=== PATIENT | male | born 1960 | race Caucasian/White ===

== ENCOUNTER 2018-11-02 13:31 | Inpatient (IN) | payer OTHER ==
[~2018-11-02] VITALS: Ht 180.3 cm; Wt 111.6 kg
[2018-11-02] VITALS (14 sets, daily range): BP systolic 112–199; BP diastolic 59–112
[~2018-11-02 13:31] MED LIST: ASPIRIN81 M2 PO; ASTAXANTHIN4 MG PO; B COMPLEX1 EACH PO; CHILDREN'S ASPI81 MG PO; CHOLEST OFF450 MG PO; CLONIDINE0.1 PO; COMBIVENT RESPIM4 GM INH; COQ-10100 MG PO; COZAAR 50 MG TA50 M2 PO; EFFEXOR XR37.5 MG PO; HYDROCHLOROTHIA25 M1 PO; METOPROLOL TAR100 MG PO; SIMVASTATIN40 MG PO; SYMBICORT80 MCG/4.1 INH; VITAMIN D1000 UNI2 PO; VITAMIN D32000 UNIT PO
[2018-11-02 13:51] LABS: ABSOLUTE BASOPHILS 0.1 thou/uL (0.0-0.2); ABSOLUTE EOSINOPHILS 0.1 thou/uL (0.0-0.7); ABSOLUTE LYMPHOCYTES 2.8 thou/uL (0.8-5.3); ABSOLUTE MONOCYTES 0.7 thou/uL (0.0-1.2); EOSINOPHILS 1.6 %; HEMATOCRIT 48.9 % (42.0-52.0); HEMOGLOBIN 16.8 gm/dL (14.0-18.0); LYMPHOCYTES 32.3 %; MCH 31.1 pg (26.0-34.0); MCHC 34.3 g/dL (28.0-37.0); MCV 90.8 fL (80.0-100.0); MONOCYTES 8.5 %; MPV 7.2 fl. (7.2-11.1); NUCLEATED RBCS 0 /100WBC; PLATELET COUNT* 288 thou/uL (150-400); POLYS 56.6 %; RBC 5.39 mil/uL (4.50-6.00); RDW-CV 13.1 % (10.5-14.5); WBC 8.8 thou/uL (4.0-11.0)
[2018-11-02 14:04] LABS: APTT 26.3 Seconds (25.0-31.3)
[2018-11-02 14:08] LABS: CALCIUM 9.5 mg/dL (8.5-10.1); CREATININE 1.3 mg/dL (0.6-1.3); POTASSIUM 3.8 mmol/L (3.5-5.1)
[2018-11-02 14:18] LABS: ALBUMIN 3.8 g/dL (3.4-5.0); CK-MB MASS 5.3 ng/mL (<0.5-3.6); MAGNESIUM 2.1 mg/dL (1.8-2.4); TOTAL BILIRUBIN 0.6 mg/dL (<0.1-1.0); TOTAL PROTEIN 7.5 g/dL (6.4-8.2); TROPONIN-I LEVEL 0.07 ng/mL (<0.06)
--- NOTE | 2018-11-02 15:36 | CARD ---
[address] [address] CARDIAC CATH REPORT Name: DARRYL MARS Room: [facility] Nolberto#: [id number] Admission: 11/02/18 Attend Phys: Discharge: 11/02/18 Date of : 58 Report #: [id number] THIS REPORT FOR: //name// APPROVED REPORT Study performed: 11/02/2018 13:44:45 Patient Details Patient Status: ED Room #: The patient is a 58 year-old male Event Personnel Jess Shepherd, Yoandy Roberson, Blessing Edwards RN, Dimitris Garg Business Development Agent Procedures Performed Left Heart Cath Coronaries, Bypass Grafts [id number] LHCCORCABG SHILA Revasc Graft Single DIAG C9604 SVGREVSING Indication Non-STEMI (>0 to less than or equal to 6 hours), Dyspnea, Unstable angina , Chest pain Risk Factors Obesity, Hypercholesterolemia, Coronary Artery DiseaseHypertension, Tobacco History () Previous Procedures/Diagnoses Previous CABG Procedure Narrative The patient was brought urgently to the Cardiac Catheterization Laboratory and was prepped and draped in a sterile manner. The right femoral was infiltrated with 2% Lidocaine subcutaneous anesthesia. A 6fr Ultimum Sheath sheath was inserted into the right femoral artery. Coronary angiography was performed using coronary diagnostic catheters. The right coronary system was accessed and visualized with a Diagnostic catheter. The left coronary system was accessed [place] [address] CARDIAC CATH REPORT Name: DARRYL MARS Room: [facility]#: [id number] Admission: 11/02/18 Attend Phys: Discharge: 11/02/18 Date of : 58 Report #: [id number] catheter. The left ventricle was accessed and visualized with a Diagnostic catheter. Left ventricular/Aortic Valve gradient assessed via catheter pullback. The patient tolerated the procedure well and there were no complications associated with the procedure. Sheath was sutured into place. Intraoperative Conscious Sedation No sedation given. Dose: 2381 mGy Contrast Type and Amount: Visipaque 210 ml Coronary Angiography The patient's coronary anatomy is right dominant. [place] Artery Percent Stenosis Left Main: 60 % Prox LAD: % Mid/Distal LAD: % Circumflex: 100 % RCA: 100 % Ramus: % Diagnostic Cath LAD There is a patent ARREAGA graft with an end-to-side anastomosis to the mid LAD. After the anastomosis, there is both retrograde and antegrade flow in the igiugig LAD. Circumflex There is a sequential SVG with a side to side anastomosis to the first diagonal artery and terminates with a end-to-side anastomosis to OM1. Within the distal segment of the sequential SVG, just before the anastomosis to OM1, there is a severe, discrete stenosis of 99% with SARIKA 2 blood flow. Right Coronary There is a patent SVG with an end to side anastomosis to the PDA. After the anastomosis, there is both antegrade and retrograde flow (filling the distal RCA and RPL branch). Left Ventriculography The left ventricle is normal in size with normal contractility. The left ventricular ejection fraction is estimated to be >55%. Hemodynamics [address] [address] CARDIAC CATH REPORT Name: DARRYL MARS Room: [facility] Nolberto#: [id number] Admission: 11/02/18 Attend Phys: Discharge: 11/02/18 Date of : 58 Report #: [id number] The aortic pressure is 214/96 mmHg with a mean of 143 mmHg. The left ventricular pressure is 190/13 mmHg with a mean of mmHg. The left ventricular end diastolic pressure is 29 mmHg. Pullback from the left ventricle to the aorta revealed no gradient across the aortic valve. PCI Technique Lesion Anticoagulation was achieved with Angiomax. Patient was preloaded with Brillinta. Percutaneous coronary intervention was performed on the SVG to OM1. The lesion stenosis prior to intervention was 99% with SARIKA 2 flow. A 6F JR 4.0 Guide Catheter was used to engage the ostium. A IG: BMW 300cm Interventional Guidewire was used to cross the lesion. BALLOON DILATION A Balloon catheter Trek RX 2.5 X 15 was inserted and inflated up to 14.00atm for 17seconds. STENT DEPLOYMENT A drug-eluting stent Jeet RX Stent 3.0X18mm was inserted and inflated up to 18.00atm for 18seconds. Additional Inflation: 18.00atm for 15seconds. POST STENT DEPLOYMENT BALLOON DILATION A Balloon catheter NC Trek RX 3.25 X 12 was inserted and inflated up to 18.00atm for 14seconds. Final angiography reveals 0 % stenosis with SARIKA 3 flow. Conclusion 1. Successful insertion of a drug-eluting stent into the distal segment of the sequential SVG to the first diagonal artery and first OM vessel. 2. Patent ARREAGA to the LAD. 3. [place] [address] CARDIAC CATH REPORT Name: DARRYL MARS Room: [facility] Arvizu#: [id number] Admission: 11/02/18 Attend Phys: Discharge: 11/02/18 Date of : 58 Report #: [id number] 4. Normal LV systolic function. 5. Recommend aggressive risk factor management and dual antiplatelet therapy. <ELECTRONICALLY SIGNED> By: Dimitris Garg MD 11/02/18 1535 1535 1535Dimitris Garg MD /INF
--- NOTE | 2018-11-02 16:00 | NUR ---
VSS, ASSUMED CARE OF PT FROM INSTALLER HELPER, ASSESSMENT PERFORMED AND CHARTED, FALL PRECAUTIONS IN PLACE AND CALL LIGHT IN REACH, PT IS A&O4, ON RA AND IS TRACING SR ON THE MONITOR, DENIES ANY PAIN AND IS IN POST CATH BED PRECAUTIONS, HAS RIGHT GROIN SHEATH, PT HAS FAMILY AT BEDSIDE WILL FOLLOW WITH PLAN OF CARE.
--- NOTE | 2018-11-02 17:00 | NUR ---
SHEATH HAS BEEN PULLED AND HEAD PRESSURE, NO BLEEDING OR HEMOTOMA. WILL FOLLOW WITH PLAN OF CARE.
[2018-11-03] VITALS (9 sets, daily range): BP systolic 114–148; BP diastolic 55–75
[2018-11-03 04:26] LABS: HEMATOCRIT 41.8 % (42.0-52.0); MCH 31.2 pg (26.0-34.0); MCHC 34.6 g/dL (28.0-37.0); MCV 90.1 fL (80.0-100.0); MPV 7.2 fl. (7.2-11.1); RBC 4.64 mil/uL (4.50-6.00); RDW-CV 13.1 % (10.5-14.5); WBC 9.1 thou/uL (4.0-11.0)
[2018-11-03 04:57] LABS: HEMOGLOBIN 14.5 gm/dL (14.0-18.0)
[2018-11-03 05:30] LABS: ALKALINE PHOSPHATASE 97 U/L (46-116); ANION GAP 6 mmol/L (7-16); BUN 16 mg/dL (7-18); CALCIUM 8.6 mg/dL (8.5-10.1); CHLORIDE 102 mmol/L (98-107); CO2 30 mmol/L (21-32); GLUCOSE 142 mg/dL (70-99); POTASSIUM 3.7 mmol/L (3.5-5.1); SGOT 116 U/L (15-37); SGPT 35 U/L (30-65); SODIUM 138 mmol/L (136-145); TOTAL BILIRUBIN 0.7 mg/dL (<0.1-1.0); TOTAL PROTEIN 6.1 g/dL (6.4-8.2)
[2018-11-03 05:32] LABS: CHOLESTEROL 162 mg/dL (<200); SERUM ASSESSMENT CLEAR; TRIGLYCERIDE 236 mg/dL (<150); VLDL 47 mg/dL (<40)
[2018-11-03 05:33] LABS: HDL CHOLESTEROL 29 mg/dL (>40); LDL CHOLESTEROL 86 mg/dL (<100); TC:HDL 5.6 Ratio (Not establshd)
--- NOTE | 2018-11-03 05:44 | NUR ---
patient progressing towards goals. no acute hemodyamic changes over night. pt right groin site intact, no hematoma present, denies pain. pulses 2+ bilaterally. pt able to sleep most of the night. no voiced concerns at this time. bed to lowest position. call light in place.
--- NOTE | 2018-11-03 12:21 | EKG ---
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[facility] : 1960 Requested By: Raymond Fox Order Number: [id number] Reading MD: Ja Hartley Measurements Intervals [place] Rate: 63 P: 63 RI: 209 QRS: 51 QRSD: 92 T: 118 QT: 406 QTc: 416 Interpretive Statements Sinus rhythm Borderline prolonged RI interval Posterior infarct, old Nonspecific repol abnormality, lateral leads Baseline wander in lead(s) V2 Compared to ECG 10/28/2014 11:53:09 no change Electronically Signed On 11-03-2018 12:21:17 SKI GUIDE by Ja Hartley [email or web address] <ELECTRONICALLY SIGNED> By: Ja Hartley MD, [facility] 11/03/18 1221 0807 0807 Ja Hartley MD, [facility] /EPI
--- NOTE | 2018-11-03 12:21 | NUR ---
PT CALLED OUT AND STATED HE WANTED TO GO HOME INSTEAD OF BEING TRANSFERED TO TELEMETRY. DR OZUNA NOTIFIED AND PAGED DR PEREZ THROUGH THE CALL SERVICE LINE. PT SR/SB ON THE MONIOR, VSS, TOLERATING DIET, RA, AND BEING UP AD SHAD AT THIS TIME, NO PAIN REPORTED AT THIS TIME. WILL CONTINUE TO MONITOR AND ASSESS UNTIL PHYSICIAN CALLS BACK.
--- NOTE | 2018-11-03 13:57 | NUR ---
RECEIVED REPORT FROM VERENA IN ICU AND ASSUMED CARE OF PT @ 7088.PT IS A/OX4,VSS,TRACING SR ON THE MONITOR.THIS NURSE ASSESSED PT AND PREVIOUS NURSE CHARTING AND AGREES.RIGHT AC IV PATENT AND SALINE LOCKED. LEFT AC PATENT AND SALINE LOCKED.NO C/O PAIN.PT LEFT RESTING IN BED WITH CALL LIGHT WITHIN REACH.WILL CONTINUE TO MONITOR.
--- NOTE | 2018-11-03 18:06 | NUR ---
VSS.CARDIAC MONITORING IN PLACE WITH NO CHANGES.PT PROGRESSING TOWARDS GOALS.NO C/O PAIN.IV PATENT AND SALINE LOCKED.RIGHT GROIN SITE CLEAN,DRY, AND INTACT.PT INFORMED OF PLAN OF CARE AND COMMUNICATES UNDERSTANDING.HOURLY ROUNDING COMPLETED FOR PT SAFETY.CALL LIGHT WITHIN REACH.WILL CONTINUE TO MONITOR FOR DURATION OF SHIFT.
[2018-11-03 23:09] LABS: GLYCOHEMOGLOBIN (HGB A1C) 6.8 % (4.8-5.6)
[2018-11-04] VITALS (7 sets, daily range): BP systolic 159–176; BP diastolic 63–89
--- NOTE | 2018-11-04 03:03 | NUR ---
PATIENT RESTED IN BED, NO ACUTE CHANGES. PATIENT DID NOT SHOW SIGNS OF DISTRESS. PATIENT DID NOT COMPLAIN OF PAIN. CALL LIGHT WITHIN REACH, HOURLY ROUNDING OBSERVED.
[2018-11-04 06:09] LABS: CALCIUM 8.5 mg/dL (8.5-10.1); POTASSIUM 3.8 mmol/L (3.5-5.1)
--- NOTE | 2018-11-04 08:00 | NUR ---
ASSUMED PT CARE AT 0700, PT UP IN CHAIR, AWAITING BREAKFAST, MANDOLIN REPAIR PERSON TRACING SINUS RHYTHM, DENIES ANY PAIN, SOA. CATH SITE ON RIGHT GROIN SOFT AND INTACT. LS CTA, PT ON RA. PT ANXIOUST TO GO HOME THIS AFTERNOON. WILL CONT TO MONITOR.
--- NOTE | 2018-11-04 10:37 | CON ---
[address] [address] CONSULTATION Name: DARRYL MARS Room: [address] IN .R.#: [id number] Admission: 11/02/18 Attend Phys: Raymond Fox MD Discharge: Date of : 58 Report #: [id number] THIS REPORT FOR: //name// CC: Didier Fox DATE OF SERVICE: 11/02/2018 Cardiology Consultation INDICATION: Chest pains. HISTORY OF PRESENT ILLNESS: This is a 58-year-old gentleman, presenting with acute onset of left-sided chest pain. He has a prior history of CABG, tobacco use, hypertension and hypercholesterolemia. He developed left-sided chest discomfort, radiating down the left arm at home. He waited about an hour before he called 911. The ECG revealed significant ST depression in the precordial leads. The initial troponin level was abnormal. There is no history of fever, chills or nausea. He was treated with aspirin, heparin in the ER. He will be taken emergently to the cardiac lab support service tech. PAST MEDICAL HISTORY: CABG more than 10 years ago. Hypertension, hypercholesterolemia, borderline diabetes. ALLERGIES: LISINOPRIL. MEDICATIONS: Losartan 50 mg, hydrochlorothiazide, metoprolol 100 mg twice a day, simvastatin 40 mg and clonidine p.r.n. SOCIAL HISTORY: Smokes 3/4 of a pack per day. FAMILY HISTORY: Negative for premature CAD. REVIEW OF SYSTEMS: A full 10-point review of systems performed. Only the pertinent positives and negatives are described in the HPI. PHYSICAL EXAMINATION: VITAL SIGNS: Blood pressure is 170/80, heart rate is 85 beats per minute. GENERAL APPEARANCE: Overweight male in mild distress. HEENT: Normocephalic/atraumatic, oral mucosa moist. NECK: Supple. LUNGS: Clear to auscultation. CARDIAC: Regular rate and rhythm. S1, S2 positive. ABDOMEN: Soft, nontender. EXTREMITIES: No cyanosis, [place] [address] CONSULTATION Name: JERADDARRYL Room: [address] IN ..#: [id number] Admission: 11/02/18 Attend Phys: Raymond Fox MD Discharge: Date of : 58 Report #: [id number] NEUROLOGIC: Alert and oriented times 3. DIAGNOSTIC DATA: ECG reveals sinus rhythm with significant ST segment depression in the inferior and precordial leads. ASSESSMENT AND PLAN: 1. Non-ST elevation myocardial infarction/acute coronary syndrome, the patient with persistent symptoms even after treatment in the emergency room. He will be taken to the cardiac catheterization lab emergently. 2. Hypertension, we will change the beta liza to carvedilol. He will resume losartan and may require clonidine. 3. Hypercholesterolemia, we will start Lipitor. 4. Tobacco use, complete smoking cessation is recommended. <ELECTRONICALLY SIGNED> By: Dimitris Garg MD 11/04/18 1037 1526 0157Dimitris Garg MD /rosaura
[2018-11-04 10:55] LABS: AMP/METHAMP Negative (Negative); BARBITURATES Negative (Negative); BENZODIAZEPINES Negative (Negative); COCAINE Negative (Negative); METHADONE Negative (Negative); OPIATES Negative (Negative); PCP Negative (Negative); THC POSITIVE (Negative)
[2018-11-04] MEDS ORDERED: ATORVASTATIN CA40 MG PO (12:26)
[2018-11-04] MEDS ORDERED: CARVEDILOL25 MG PO (12:26)
[2018-11-04] MEDS ORDERED: CHLORTHALIDONE25 MG PO (12:34)
--- NOTE | 2018-11-04 14:37 | 2DMMODE ---
[place] [address] 2 D/M-MODE ECHOCARDIOGRAM Name: DARRYL MARS Room: [facility] IN [facility]#: [id number] Admission: 11/02/18 Attend Phys: Raymond Fox MD Discharge: Date of : 58 Date of Service: 11/04/18 1437 Report #: [id number] THIS REPORT FOR: //name// APPROVED REPORT Study performed: 11/04/2018 10:35:46 EXAM: Comprehensive 2D, Doppler, and color-flow Echocardiogram Patient Location: In-Patient Room #: 209 Status: routine BSA: 2.30 HR: 75 bpm BP: 162/80 mmHg Rhythm: NSR Other Information Technically limited study due to body habitus. Indications Acute UT Chest Pain Echo Enhancing Agent Indication: Endocardial border delineation Agent(s) / Amount(s) Used: Optison 3 cc 2D Dimensions IVSd: 13.20 (7-11mm) LVOT Diam: 20.93 (18-24mm) LVDd: 60.00 mm PWd: 11.12 (7-11mm) Ascending Ao: 38.39 (22-36mm) LVDs: 39.80 (25-40mm) Aortic Root: 35.86 mm Volumes Left Atrial Volume (Systole) LA ESV Index: 30.10 mL/m2 Aortic Valve AoV Peak Tony.: 1.24 m/s AO Peak Gr.: 6.14 mmHg LVOT Max P.81 mmHg AO Mean Gr.: 3.52 mmHg LVOT Mean P.27 mmHg LVOT Max V: 1.10 m/s AO V2 VTI: 22.71 cm LVOT Mean V: 0.69 m/s ASHLEY (VTI): 2.82 cm2 LVOT V1 VTI: 18.62 [place] [address] 2 D/M-MODE ECHOCARDIOGRAM Name: DARRYL MARS Room: [address] IN .R.#: [id number] Admission: 11/02/18 Attend Phys: Raymond Fox MD Discharge: Date of : 58 Date of Service: 11/04/18 1437 Report #: [id number] Mitral Valve E/A Ratio: 0.72 MV Decel. Time: 180.26 ms MV E Max Tony.: 0.65 m/s MV PHT: 52.28 ms MVA (PHT): 4.21 cm2 TDI E/Lateral E': 7.22 E/Medial E': 5.91 Medial E' Tony.: 0.11 m/s Lateral E' Tony.: 0.09 m/s Pulmonary Valve PV Peak Tony.: 0.97 m/s PV Peak Gr.: 3.78 mmHg Tricuspid Valve RAP Estimate: 5.00 mmHg TR Peak Gr.: 16.60 mmHg RVSP: 21.00 mmHg PA Pressure: 21.00 mmHg Left Ventricle The left ventricle is normal size. There is normal LV segmental wall motion. Mild concentric left ventricular hypertrophy. Left ventricular systolic function is normal. The left ventricular ejection fraction is within the normal range. LVEF is 55-60%. Grade I - abnormal relaxation pattern. Right Ventricle The right ventricle is normal size. The right ventricular systolic function is normal. Atria Left atrium is mildly dilated. The right atrium size is normal. Aortic Valve The aortic valve is normal in structure. No aortic regurgitation is present. There is no aortic valvular stenosis. Mitral Valve The mitral valve is normal in structure. Trace mitral regurgitation. No evidence [place] [address] 2 D/M-MODE ECHOCARDIOGRAM Name: DARRYL MARS Room: [address] [place] [facility]#: [id number] Admission: 11/02/18 Attend Phys: Raymond Fox MD Discharge: Date of : 58 Date of Service: 11/04/18 1437 Report #: [id number] Tricuspid Valve The tricuspid valve is normal in structure. Trace tricuspid regurgitation. No pulmonary hypertension. Pulmonic Valve Pulmonic valve is not well visualized. Trace pulmonic regurgitation. Great Vessels The aortic root is normal in size. IVC is normal in size and collapses >50% with inspiration. Pericardium There is no pericardial effusion. <Conclusion> LVEF is 55-60%. Mild concentric left ventricular hypertrophy. Left atrium is mildly dilated. <ELECTRONICALLY SIGNED> By: Ja Hartley MD, FACC 11/04/18 1437 1437 1437 Ja Hartley MD, FACC /INF
[2018-11-04] MEDS ORDERED: BRILINTA90 MG PO (14:43)
--- NOTE | 2018-11-04 16:22 | NUR ---
PT DISCHARGED AT 1530 VIA WHEELCHAIR WITH AND NURSING STAFF. PTS INSTRUCTOR KNITTING AND IV DISCONTINUED. EDUCATED ON ALL DISCHARGE INSTRUCTIONS INCLUDING FOLLOW UP APPTS AND MEDICATIONS, PT STATES UNDERSTANDING.
== END 2018-11-04 15:30 | disposition home or self-care (01) | DRG 247 ==
LOC: M.ERS 13:31 → M.CL 13:31 → M.2W 13:45 → M.ICU 13:45 → M.CL 14:08 → M.ICU 11-03 11:21 → M.2W 11-03 13:53
PROVIDERS: Family Medicine; ADMIT Family Medicine
PROC: 4A023N7 Measurement of Cardiac Sampling and Pressure, Left Heart, Percutaneous Approach (ICD-10-PCS; principal; 2018-11-02)
PROC: B218YZZ Fluoroscopy of Left Internal Mammary Bypass Graft using Other Contrast (ICD-10-PCS; principal; 2018-11-02)
PROC: B211YZZ Fluoroscopy of Multiple Coronary Arteries using Other Contrast (ICD-10-PCS; principal; 2018-11-02)
PROC: B213YZZ Fluoroscopy of Multiple Coronary Artery Bypass Grafts using Other Contrast (ICD-10-PCS; principal; 2018-11-02)
PROC: 027034Z Dilation of Coronary Artery, One Artery with Drug-eluting Intraluminal Device, Percutaneous Approach (ICD-10-PCS; principal; 2018-11-02)
DX: I21.3 ST elevation (STEMI) myocardial infarction of unspecified site (principal); I10 Essential (primary) hypertension; I24.9 Acute ischemic heart disease, unspecified; J44.9 Chronic obstructive pulmonary disease, unspecified; E78.00 Pure hypercholesterolemia, unspecified; F17.210 Nicotine dependence, cigarettes, uncomplicated; E78.5 Hyperlipidemia, unspecified; E11.9 Type 2 diabetes mellitus without complications; E66.01 Morbid (severe) obesity due to excess calories; I25.10 Atherosclerotic heart disease of native coronary artery without angina pectoris; Z79.82 Long term (current) use of aspirin; Z79.899 Other long term (current) drug therapy; Z95.1 Presence of aortocoronary bypass graft; Z87.81 Personal history of (healed) traumatic fracture; Z88.8 Allergy status to other drugs, medicaments and biological substances; Z82.49 Family history of ischemic heart disease and other diseases of the circulatory system; Z68.34 Body mass index [BMI] 34.0-34.9, adult

== ENCOUNTER 2020-06-26 01:11 | Inpatient (IN) | payer OTHER ==
[~2020-06-26] VITALS: Ht 180.3 cm; Wt 115.0 kg
[~2020-06-26 01:11] MED LIST changes: +ATORVASTATIN CA40 MG PO; +BRILINTA90 MG PO; +CARVEDILOL25 MG PO; +CHLORTHALIDONE25 MG PO
[2020-06-26 01:15] VITALS: BP 200/98
[2020-06-26 01:39] LABS: ABSOLUTE BASOPHILS 0.1 thou/uL (0.0-0.2); ABSOLUTE EOSINOPHILS 0.2 thou/uL (0.0-0.7); ABSOLUTE LYMPHOCYTES 3.2 thou/uL (0.8-5.3); ABSOLUTE MONOCYTES 0.8 thou/uL (0.0-1.2); ABSOLUTE NEUTROPHILS 5.2 thou/uL (1.6-8.1); BASOPHILS 0.7 %; EOSINOPHILS 2.1 %; HEMATOCRIT 44.5 % (42.0-52.0); HEMOGLOBIN 15.9 gm/dL (14.0-18.0); LYMPHOCYTES 33.7 %; MCH 31.8 pg (26.0-34.0); MCHC 35.8 g/dL (28.0-37.0); MCV 88.9 fL (80.0-100.0); MONOCYTES 8.4 %; MPV 6.9 fl. (7.2-11.1); NUCLEATED RBCS 0 /100WBC; PLATELET COUNT* 246 thou/uL (150-400); POLYS 55.1 %; RBC 5.01 mil/uL (4.50-6.00); RDW-CV 13.5 % (10.5-14.5); WBC 9.3 thou/uL (4.0-11.0)
[2020-06-26] MEDS ORDERED: HYDROCHLOROTHIA25 M2 (01:48)
[2020-06-26] MEDS ORDERED: COZAAR 25 MG TA25 M1 PO (01:48)
[2020-06-26] MEDS ORDERED: LYRICA 50 MG50 MG (01:49)
[2020-06-26] MEDS ORDERED: METFORMIN HCL500 M3 (01:49)
[2020-06-26] MEDS ORDERED: PLAVIX 75 MG TA75 MG (01:49)
[2020-06-26] MEDS ORDERED: TRELEGY ELLIPT1 EACH (01:49)
[2020-06-26] MEDS ORDERED: PROAIR HFA8.5 GM (01:50)
[2020-06-26 01:53] LABS: CREATININE 1.1 mg/dL (0.6-1.3)
[2020-06-26 01:58] LABS: APTT 27.2 Seconds (25.0-31.3); PROTIME 10.3 Seconds (9.20-11.50)
[2020-06-26 02:04] LABS: ALBUMIN 3.6 g/dL (3.4-5.0); TOTAL BILIRUBIN 0.4 mg/dL (<0.1-1.0); TOTAL PROTEIN 7.2 g/dL (6.4-8.2)
[2020-06-26 07:06] VITALS: BP 178/76
--- NOTE | 2020-06-26 10:02 | EKG ---
[place] [address] ELECTROCARDIOGRAM REPORT Name: DARRYL MARS Room: [place] [address] ADM IN R.#: [id number] Admission: 06/26/20 Attend Phys: Liv Garcia, Discharge: Date of : 58 Date of Service: 06/26/20 0118 Report #: [id number] THIS REPORT FOR: //name// 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: [place] : 1960 Requested By: Tara Ordaz Order Number: [id number] MD: Jason Hargrove Measurements Intervals [place] Rate: 90 P: 74 IA: 233 QRS: 61 QRSD: 99 T: 170 QT: 311 QTc: 381 Interpretive Statements Sinus rhythm Prolonged IA interval Left atrial enlargement Anteroseptal infarct, age indeterminate possible Repol abnrm; consider global ischemia Compared to ECG 11/03/2018 08:07:42 Atrial abnormality now present Possible ischemia now present Myocardial infarct finding still present Electronically Signed On 06-26-2020 10:02:20 CDT by Jason Hargrove [email or web address] <ELECTRONICALLY SIGNED> By: Jason Hargrove MD, FACC 06/26/20 1002 7 Jason Hargrove MD, FAC /EPI
[2020-06-26 11:09] VITALS: BP 158/77
[2020-06-26 12:07] LABS: CHOLESTEROL 186 mg/dL (<200); HDL CHOLESTEROL 27 mg/dL (>40); LDL CHOLESTEROL 96 mg/dL (<100); TC:HDL 6.9 Ratio (Not establshd); TRIGLYCERIDE 315 mg/dL (<150); VLDL 63 mg/dL (<40)
[2020-06-26 12:09] LABS: SERUM ASSESSMENT Clear
[2020-06-26 16:42] LABS: CALCIUM 8.7 mg/dL (8.5-10.1); MAGNESIUM 1.9 mg/dL (1.8-2.4); POTASSIUM 3.5 mmol/L (3.5-5.1)
[2020-06-26 17:27] VITALS: BP 139/58
--- NOTE | 2020-06-26 18:11 | NUR ---
PT PROVIDED DINNER TRAY PER ORDERS.
[2020-06-26 19:50] VITALS: BP 169/69
[2020-06-27] VITALS (16 sets, daily range): BP systolic 124–170; BP diastolic 65–77
[2020-06-27 04:19] LABS: HEMATOCRIT 43.5 % (42.0-52.0); HEMOGLOBIN 14.9 gm/dL (14.0-18.0); MCH 30.8 pg (26.0-34.0); MCHC 34.4 g/dL (28.0-37.0); MCV 89.6 fL (80.0-100.0); MPV 7.8 fl. (7.2-11.1); RBC 4.85 mil/uL (4.50-6.00); WBC 8.1 thou/uL (4.0-11.0)
--- NOTE | 2020-06-27 05:31 | NUR ---
ASSUMED PT'S CARE @0 1900. PT ALERT AND ORIENTED. VSS ON RA. PT HAD O2 OFF AT THAT TIME. 2L 02 PER PROTOCOL. PT NPO AFTER MIDNIGHT. TANK ERECTOR THIS AM, TIME UNKNOWN. PT TOOK MEDS WITHOUT ISSUES. DENIES PAIN. AT BEDSIDE BEGINNING OF SHIFT. PT SLEEPING WELL IN HIS ROOM. HEPARIN DRIP TO LH PER PROTOCOL. CALL LIGHT WITHIN REACH. WILL CONTINUE TO MONITOR.
[2020-06-27 06:07] LABS: CREATININE 1.3 mg/dL (0.6-1.3); POTASSIUM 3.1 mmol/L (3.5-5.1); TOTAL BILIRUBIN 0.3 mg/dL (<0.1-1.0)
[2020-06-27 06:08] LABS: ALBUMIN 3.3 g/dL (3.4-5.0); CALCIUM 8.7 mg/dL (8.5-10.1); MAGNESIUM 1.9 mg/dL (1.8-2.4); TOTAL PROTEIN 6.4 g/dL (6.4-8.2)
--- NOTE | 2020-06-27 13:41 | NUR ---
PT ADMITTED POST REAMING MACHINE TENDER. POST STENT PLACEMENT REAMING MACHINE TENDER PROTOCOL IN PLACE. PT RESTING IN BED. VITALS STABLE. FALL RISK PRECAUTIONS IN PLACE. WILL CONTINUE TO MONITOR.
--- NOTE | 2020-06-27 16:43 | NUR ---
PT REMAINED ALERT AND ORIENTED. PT RESTING IN BED. POST SUPERVISOR EXTRUDING DEPARTMENT PRECAUTIONS IN PLACE TILL 1800. VITALS OBTAINED ORDERED. CATH SITE C/D/I. PT DENIES ANY PAIN THIS SHIFT. FALL RISK PRECAUTIONS IN PLACE. ACCU CHECKS COMPLETED. TELE MONITORED. WILL CONTINUE TO MONITOR.
--- NOTE | 2020-06-27 20:00 | NUR ---
RECEIVED REPORT AND ASSUMED CARE OF PT, ASSESSMENT COMPLETED. AT BEDSIDE. RT GROIN DRY AND INTACT, NO HEMATOMA OR ECCHYMOSIS. EDUCATED PT TO FREQ CHECK GROIN AFTER AMBULATION OR MOVEMENT. DENIES PAIN OR DISCOMFORT. TELEMETRY ON SHOWING SR. WILL CONT TO MONITOR AND ASSIST NEEDED.
[2020-06-28] VITALS: BP 149/71
[2020-06-28 04:00] VITALS: BP 147/73
[2020-06-28 05:04] LABS: HEMATOCRIT 41.1 % (42.0-52.0); HEMOGLOBIN 14.9 gm/dL (14.0-18.0); MCH 32.1 pg (26.0-34.0); MCHC 36.3 g/dL (28.0-37.0); MCV 88.3 fL (80.0-100.0); MPV 7.4 fl. (7.2-11.1); RBC 4.65 mil/uL (4.50-6.00); RDW-CV 13.8 % (10.5-14.5)
[2020-06-28 05:35] LABS: ALBUMIN 3.2 g/dL (3.4-5.0); CALCIUM 8.5 mg/dL (8.5-10.1); POTASSIUM 3.1 mmol/L (3.5-5.1); TOTAL BILIRUBIN 0.4 mg/dL (<0.1-1.0); TOTAL PROTEIN 6.5 g/dL (6.4-8.2)
--- NOTE | 2020-06-28 06:17 | NUR ---
SLEPT WELL TONIGHT. GAIT STEADY TO AND FROM BR. RT GROIN WITHOUT INCIDENT. DENIES ANY COMPLAINTS. TELEMETRY SHOWING SR WITH 1ST AVB. HS GOALS OF REST AND SAFETY ACHIEVED. HOURLY ROUNDING OBSERVED.
[2020-06-28 08:00] VITALS: BP 156/69
[2020-06-28] MEDS ORDERED: LIPITOR40 MG PO (09:24)
--- NOTE | 2020-06-28 09:24 | CON ---
[address] [address] CONSULTATION Name: JERADDARRYL Clarisse Room: [address] IN M.R.#: [id number] Admission: 06/26/20 Attend Phys: Ifeanyi Ross, Discharge: Date of : 58 Report #: [id number] THIS REPORT FOR: //name// cc: Didier Lambert Gregg R. DO ~ THIS REPORT FOR: //name// CC: Ja Garcia CHIEF COMPLAINT: Chest pain. HISTORY OF PRESENT ILLNESS: The patient is a 60-year-old gentleman with history of 4-vessel coronary artery bypass grafting remotely. In October of 2018, he had a non-ST elevation myocardial infarction. He was found to have occlusion of the saphenous vein graft to an obtuse marginal branch with a 99% stenosis and SARIKA 2 flow for which he underwent intervention with a 3.0 x 18 mm drug-eluting stent placed. Final results were good. At that time, he was noted to have a patent ARREAGA graft to the LAD and patent saphenous vein graft to the PDA. He had normal LV systolic function. The patient had an episode of aspiration a few days ago. He had been coughing off and on since then that has resolved. In the interim, he has developed midsternal exertional chest discomfort fairly consistent with unstable angina. His initial troponin here is 0.[address]-segment depression noted on the EKG, all suggestive of non-ST elevation myocardial infarction. The patient has been placed on a heparin drip. His pain was relieved with sublingual nitroglycerin. Cardiac risk factors include hypertension, dyslipidemia and tobacco use. He has a history of carotid vascular and peripheral vascular disease without symptoms. PAST MEDICAL HISTORY: 1. Coronary artery disease with 4-vessel coronary artery bypass grafting remotely and percutaneous coronary intervention as outlined above. 2. Chronic obstructive pulmonary disease. 3. Hypertension. 4. Dyslipidemia. 5. Chronic tobacco use. 6. Prediabetes. 7. Family history of coronary artery disease. 8. Neuropathy. 9. Chronic back pain. 10. [place] [address] CONSULTATION Name: DARRYL MARS Clarisse Room: [address] IN [facility].#: [id number] Admission: 06/26/20 Attend Phys: Ifeanyi Ross, Discharge: Date of : 58 Report #: [id number] FAMILY HISTORY: Positive for coronary artery disease in a brother. His father had lupus. SOCIAL HISTORY: The patient is . He smokes a pack of cigarettes daily. He does not drink alcohol. ALLERGIES: None. HOME MEDICATIONS: Albuterol inhaler as directed, enteric coated aspirin 81 mg daily, atorvastatin 40 mg at bedtime, carvedilol 25 mg b.i.d., Plavix 75 mg daily, Trelegy as directed, hydrochlorothiazide 25 mg as directed, losartan 100 mg as directed, metformin 500 mg b.i.d., Lyrica 50 mg t.i.d., Effexor XR 37.5 mg daily. REVIEW OF SYSTEMS: A 14-point review of systems was positive for erectile dysfunction, cough productive of clear sputum, COPD, shortness of breath with exercise, prediabetes, seasonal allergies, medical allergies, lisinopril, depression and anxiety. He wears glasses. He has decreased hearing and dentures. Otherwise, 14-point review of systems unremarkable. PHYSICAL EXAMINATION: VITAL SIGNS: Blood pressure 178/76, pulse is 66 and regular. GENERAL: This is a pleasant gentleman who is in no distress. Mood and affect appropriate. HEENT: Extraocular muscles intact. Mucous membranes are moist. NECK: Shows no jugular venous distention. There is a right carotid bruit. CHEST: Reveals diminished breath sounds throughout without wheezes or rales. CARDIOVASCULAR: Reveals a regular rhythm with normal S1 and S2. I do not appreciate gallop or murmur. ABDOMEN: Reveals a protuberant abdomen, soft, and nontender. Bowel sounds present. EXTREMITIES: Show no edema. Peripheral pulses palpable. SKIN: Warm and dry. LABORATORY DATA: A 12-lead EKG shows sinus rhythm with ST segment depression in inferolateral leads suggesting ischemia. Labs are reviewed. Sodium 138, potassium 3.0, chloride 101, bicarbonate 32, BUN 19, creatinine 1.1, serum glucose 169. LFTs are within normal limits. Initial troponin was 0.65 and now 0.80. NT-proBNP is 730. White blood cell count 9.3, hemoglobin 15.9, platelet count 246,000. Chest x-ray shows no acute cardiopulmonary abnormality. IMPRESSION AND RECOMMENDATIONS: 1. Non-ST elevation myocardial infarction. We will plan to proceed with [address] [address] CONSULTATION Name: DARRYL MARS Room: [address] IN M.R.#: [id number] Admission: 06/26/20 Attend Phys: Ifeanyi Ross, Discharge: Date of : 58 Report #: [id number] heart catheterization and possible coronary intervention. Continue heparin drip at this point in time. Resume home medications. 2. Hypertension. Blood pressure mildly elevated at this time. We will resume home medications and make adjustments as needed for improved blood pressure control. 3. Dyslipidemia. Continue current statin agent. Repeat fasting lipid profile. 4. Tobacco use. Smoking cessation discussed and advised. 5. Chronic obstructive pulmonary disease, presently stable. 6. Prediabetes per hospitalist. Continue metformin 500 b.i.d. 7. Acute on chronic diastolic heart failure. Diurese and revascularize as needed. <ELECTRONICALLY SIGNED> By: Willem Merlos MD, FACC 06/28/20 0924 1056 1139Willem Merlos MD, FACC /nt
[2020-06-28 10:35] VITALS: BP 156/69
[2020-06-28 10:44] VITALS: BP 156/69
--- NOTE | 2020-06-28 11:14 | NUR ---
Pt is A&O. Resides at home with his and son. Independent. No DME. No hx of HH or SNF. Hx of cardiac rehab. Pt had a cath yesterday. Discharging to home today, no needs.
[2020-06-28 11:27] VITALS: BP 156/69
--- NOTE | 2020-06-28 15:02 | EKG ---
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 : 1960 Requested By: Willem Merlos Order Number: [id number] Gallo MD: Jason Hargrove Measurements Intervals [place] Rate: 71 P: 35 FL: 217 QRS: 52 QRSD: 116 T: 127 QT: 424 QTc: 461 Interpretive Statements Sinus rhythm Rare PACs Borderline prolonged FL interval Incomplete right bundle branch block Abnormal T, consider ischemia, lateral leads Baseline wander in lead(s) V1 Compared to ECG 06/26/2020 01:18:13 Atrial premature complex(es) now present Incomplete right bundle-branch block now present T-wave abnormality now presen Myocardial infarct finding no longer present Possible ischemia still present Electronically Signed On 06-28-2020 15:01:48 CDT by Jason Hargrove [email or web address] <ELECTRONICALLY SIGNED> By: Jason Hargrove MD, [facility] 06/28/20 1501 0554 0554 Jason Hargrove MD, [facility] /EPI
--- NOTE | 2020-06-28 16:44 | NUR ---
VS CHARTED, A&OX4, SR ON TELE, ROOM AIR, UP AD SHAD, 1 DAY POST CATH- RIGHT GROIN-CLEAN,DRY & INTACT, NO HEMATOMA, HOURLY ROUNDING PERFORMED, POSSESSIONS AND CALL LIGHT WITHIN REACH, REC DISCHARGE, REVIEWED WITH PATIENT, TELE MONITOR AND IV REMOVED WITHOUT COMPLICATION, SCRIPT AND CARE NOTES GIVEN, PATIENT TAKEN TO EXIT IN WHEELCHAIR BY NURSING STAFF, PICKED UP BY SPOUSE IN FAMILY CAR
--- NOTE | 2020-06-29 14:14 | CARD ---
[address] [address] CARDIAC CATH REPORT Name: DARRYL MARS Room: [address] IN .[place].#: [id number] Admission: 06/26/20 Attend Phys: Ifeanyi Ross, Discharge: 06/28/20 Date of : 58 Report #: [id number] THIS REPORT FOR: //name// cc: Didier Lambert Gregg R. DO ~ APPROVED REPORT Study performed: 06/27/2020 10:10:26 Patient Details Patient Status: ED Room #: The patient is a 60 year-old male Event Personnel Willem Merlos Property Utilization Officer, Jason Hargrove Manager Account Management, Meg Negro RN Monitor, John Jacobson RTR Scrub, Geeta Scott RN belt worker Performed Art Access - R femoral artery* Left Heart Cath Coronaries, Bypass Grafts SHILA Revasc Graft Single Hemostasis w/ Angioseal Indication Non-STEMI Risk Factors Hypercholesterolemia, Hypertension Previous Procedures/Diagnoses Previous CABGPrevious PCI Admission/Lab Medications/Medications given during procedure Aspirin, Thrombin Inhibitors, Platelet Aff. Inhib., Aspirin PO 324 mg, Plavix PO 300 mg, Angiomax IV 16.5 ml Procedure Narrative The patient was brought electively to the Cardiac Catheterization Laboratory and was prepped and draped in a sterile manner. The right femoral was infiltrated with 2% Lidocaine subcutaneous anesthesia. A Steele 6 FR sheath was inserted into the right femoral artery. Coronary angiography was performed using coronary diagnostic catheters. The right coronary system was accessed and visualized with a MPA 6fr catheter. The left coronary system was accessed and visualized with a JL4 6fr catheter. [place] [address] CARDIAC CATH REPORT Name: DARRYL MARS [place] Room: [address]#: [id number] Admission: 06/26/20 Attend Phys: Ifeanyi Ross, Discharge: 06/28/20 Date of : 58 Report #: [id number] and visualized with a PC: Angled Pig 5fr catheter. Left ventricular/Aortic Valve gradient assessed via catheter pullback. Pre-demployment femoral angiogram was performed . Closure device was deployed with a 6 Fr Angioseal. The patient tolerated the procedure well and there were no complications associated with the procedure. There was no hematoma. Intraoperative Conscious Sedation Sedation start time: 11:11 Case end Time: 12:09 Fentanyl 50 mcg Versed 2 mg Fluoro Time: 7.8 minutes Dose: DAP [id number] cGycm2 2119 mGy Contrast Type and Amount: Visipaque 360 ml [place] Artery Percent Stenosis 1. Widely patent ARREAGA graft to the LAD 2. Widely patent saphenous vein graft to the distal right cor artery 3. Patent saphenous vein graft to a diagonal and the distal circumflex with 90% mid graft stenosis Diagnostic Cath Left Main 50% proximal narrowing LAD 75% tubular proximalmid vessel stenosis with reciprocal flow distally reflecting a patent ARREAGA graft Circumflex 90% proximal stenosis with total mid vessel occlusion after first marginal branch Right Coronary 100% ostial occlusion Left Ventriculography The left ventricle is normal in size with normal contractility. The left ventricular ejection fraction is estimated to be 65%. Left ventricular wall motion abnormalities are not present. There is no mitral insufficiency. Hemodynamics The aortic pressure is 185/74 mmHg with a mean of 108 mmHg. The left ventricular pressure is 175/13 mmHg with a mean of mmHg. The left ventricular end diastolic pressure is 24 mmHg. PCI Technique Lesion Anticoagulation was achieved with Angiom[place] [address] CARDIAC CATH REPORT Name: DARRYL MARS Room: [address] [place] [facility].#: [id number] Admission: 06/26/20 Attend Phys: Ifeanyi Ross, Discharge: 06/28/20 Date of : 58 Report #: [id number] intervention was performed on the Mid 1/3 of SVG Graft to the Circumflex. The lesion stenosis prior to intervention was 90% with SARIKA 3 flow. A 6F JR 4.0 Guide Catheter was used to engage the SVG Graft ostium. A IG: BMW 190cm Interventional Guidewire was used to cross the lesion. BALLOON DILATION A Balloon catheter Mini Trek RX 2.0 X 20 was inserted and inflated up to 12.00atm for 8seconds. STENT DEPLOYMENT A drug-eluting stent [place] RX Stent 3.0X30mm was inserted and inflated up to 8.00atm for 8seconds. Additional Inflation: 10.00atm for 8seconds. Additional Inflation: 12.00atm for 6seconds. The patient developed Slow Flow in the SVG Graft and Intra- graft adenosine was utilized to revascularize this area. A total of 700 mcg of IC Adenosine utilized for this procedure Final angiography reveals 0 % stenosis with SARIKA 3 flow. Conclusion 1. Significant multivessel coronary artery disease characterized by the following: A 50% proximal left main coronary stenosis B 75% tubular proximalmid LAD stenosis with reciprocal flow in the distal LAD reflecting a patent ARREAGA graft C total occlusion of the nondominant circumflex after the takeoff of a small first marginal branch D total ostial occlusion of the dominant right coronary 2. Graft study characterized by the following: A widely patent ARREAGA graft to the LAD B widely patent saphenous vein graft the distal right coronary artery C patent saphenous vein graft to a diagonal branch of the of the LAD and and distal circumflex with 90% mid graft stenosis 3. Moderate systemic systolic [place] [address] CARDIAC CATH REPORT Name: DARRYL MARS Room: [address] [place] .R.#: [id number] Admission: 06/26/20 Attend Phys: Ifeanyi Ross, Discharge: 06/28/20 Date of : 58 Report #: [id number] of left ventricular end-diastolic pressure at rest 4. Normal left ventricular systolic function, estimated ejection fraction being 65% 5. Successful PCI with deployment of drug-eluting stent at the site of 90% mid vessel stenosis in the graft to the diagonal and distal circumflex with 0% residual narrowing and SARIKA-3 flow the distal vessel 6. Transient no reflow in the graft the diagonal and circumflex after initial deployment of the drug-eluting stent; this responded to intragraft infusion of 700 mcg of adenosine; there was yarsanism of SARIKA-3 flow to the distal circulation Recommendations Cardiac Risk Reduction Program Aggressive Medical Therapy Medications Administered Aspirin (any) Prasugrel Diagnostic Cath Approved by: Willem Merlos MD Date/Time: 06/29/2020 14:09:37 <ELECTRONICALLY SIGNED> By: Jason Hargrove MD, [facility] 06/29/20 1414 1414 1414Jason Hargrove MD, FAC /INF
== END 2020-06-28 12:05 | disposition home or self-care (01) | DRG 246 ==
LOC: M.ERS 01:11 → M.2W 02:56 → M.TBA-ER 02:56 → M.2W 06-27 13:16
PROVIDERS: Internal Medicine Cardiovascular Disease; Personal Emergency Response Attendant; ADMIT Family Medicine; ATTEND Family Medicine
PROC: B218YZZ Fluoroscopy of Left Internal Mammary Bypass Graft using Other Contrast (ICD-10-PCS; principal; 2020-06-27)
PROC: B213YZZ Fluoroscopy of Multiple Coronary Artery Bypass Grafts using Other Contrast (ICD-10-PCS; principal; 2020-06-27)
PROC: B215YZZ Fluoroscopy of Left Heart using Other Contrast (ICD-10-PCS; principal; 2020-06-27)
PROC: 4A023N7 Measurement of Cardiac Sampling and Pressure, Left Heart, Percutaneous Approach (ICD-10-PCS; principal; 2020-06-27)
PROC: B211YZZ Fluoroscopy of Multiple Coronary Arteries using Other Contrast (ICD-10-PCS; principal; 2020-06-27)
PROC: 027034Z Dilation of Coronary Artery, One Artery with Drug-eluting Intraluminal Device, Percutaneous Approach (ICD-10-PCS; principal; 2020-06-27)
DX: T82.858A Stenosis of other vascular prosthetic devices, implants and grafts, initial encounter (principal); I21.4 Non-ST elevation (NSTEMI) myocardial infarction; I50.33 Acute on chronic diastolic (congestive) heart failure; J44.0 Chronic obstructive pulmonary disease with (acute) lower respiratory infection; E87.6 Hypokalemia; E78.5 Hyperlipidemia, unspecified; I11.0 Hypertensive heart disease with heart failure; F32.9 Major depressive disorder, single episode, unspecified; G89.29 Other chronic pain; I25.10 Atherosclerotic heart disease of native coronary artery without angina pectoris; E11.40 Type 2 diabetes mellitus with diabetic neuropathy, unspecified; F17.210 Nicotine dependence, cigarettes, uncomplicated; E78.00 Pure hypercholesterolemia, unspecified; E66.01 Morbid (severe) obesity due to excess calories; I25.2 Old myocardial infarction; Z95.1 Presence of aortocoronary bypass graft; Z68.35 Body mass index [BMI] 35.0-35.9, adult; Z88.8 Allergy status to other drugs, medicaments and biological substances; Z79.84 Long term (current) use of oral hypoglycemic drugs; Z79.82 Long term (current) use of aspirin; Z79.899 Other long term (current) drug therapy; Y83.8 Other surgical procedures as the cause of abnormal reaction of the patient, or of later complication, without mention of misadventure at the time of the procedure; Y92.89 Other specified places as the place of occurrence of the external cause; Z20.828 Contact with and (suspected) exposure to other viral communicable diseases

== ENCOUNTER → 2020-07-07 | Outpatient (CLI) | payer OTHER ==
[~2020-07-07] MED LIST changes: +COZAAR 25 MG TA25 M1 PO; +HYDROCHLOROTHIA25 M2; +LIPITOR40 MG PO; +LYRICA 50 MG50 MG; +METFORMIN HCL500 M3; +PLAVIX 75 MG TA75 MG; +PROAIR HFA8.5 GM; +TRELEGY ELLIPT1 EACH
[2020-07-07 09:31] LABS: CALCIUM 8.8 mg/dL (8.5-10.1); CREATININE 1.1 mg/dL (0.6-1.3); POTASSIUM 3.5 mmol/L (3.5-5.1)
== END ==
LOC: M.LAB 09:04
PROVIDERS: ATTEND Nurse Practitioner
DX: E87.6 Hypokalemia (principal)